=== PATIENT | female | born 1975 | race American Indian/Alaskan Native ===

== ENCOUNTER 2021-10-05 13:39 | Emergency (ER) | payer OTHER ==
[2021-10-05 16:27] VITALS: BP 123/71
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
== END 2021-10-05 17:18 | disposition home or self-care (01) ==
LOC: EDBD 13:39 → ED 13:39
DX: M25.512 Pain in left shoulder (principal); R07.81 Pleurodynia; Z88.8 Allergy status to other drugs, medicaments and biological substances; V89.2XXA Person injured in unspecified motor-vehicle accident, traffic, initial encounter; Y93.89 Activity, other specified; Y92.89 Other specified places as the place of occurrence of the external cause; Y99.8 Other external cause status
CPT/HCPCS: 99283

== ENCOUNTER 2021-12-22 10:17 | Emergency (ER) | payer OTHER ==
[2021-12-22 11:09] VITALS: BP 109/67
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
== END 2021-12-22 23:43 | disposition home or self-care (01) ==
LOC: ED 10:17
DX: R07.9 Chest pain, unspecified (principal)
CPT/HCPCS: 99282

== ENCOUNTER 2022-01-10 12:17 | Emergency (ER) | payer OTHER ==
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
[2022-01-10 12:58] VITALS: BP 116/74
[2022-01-10 13:31] LABS: Hematocrit 42.2 % (30.3-42.9); Hemoglobin 14.1 gm/dl (10.1-14.3); Mean Corpuscular HGB Conc 33 % (30-34); Mean Corpuscular Volume 100 fl (79-97); Platelet Count 310 K/mm3 (140-440); Red Blood Count 4.22 M/mm3 (3.65-5.03); Red Cell Distribution Width 14.7 % (13.2-15.2)
[2022-01-10 13:38] LABS: INR 0.9 (0.87-1.13)
[2022-01-10 13:39] LABS: Partial Thromboplastin Time 24.5 Sec. (24.2-36.6)
[2022-01-10 13:50] LABS: Alanine Aminotransferase 28 units/L (7-56); Albumin 4.8 g/dL (3.9-5); BUN/Creatinine Ratio 10; Blood Urea Nitrogen 9 mg/dL (7-17); Calcium 9.7 mg/dL (8.4-10.2); Hemolysis Index 8
== END 2022-01-10 14:14 | disposition home or self-care (01) ==
LOC: ED 12:17
DX: R23.3 Spontaneous ecchymoses (principal); Z91.09 Other allergy status, other than to drugs and biological substances
CPT/HCPCS: 36415; 80053; 85027; 85610; 85730; 99283